=== PATIENT | female | born 1970 | race Two or more races ===

== ENCOUNTER 2021-06-21 14:39 | Emergency (ER) | payer MEDICAID ==
[~2021-06-21] VITALS: Ht 157.5 cm; Wt 90.7 kg
[2021-06-21 15:34] LABS: Basophils # (auto) 0.1 10 ^3/uL (0-0.2); Basophils % (auto) 0.7 % (0.0-2.0); Eosinophils # (auto) 0.5 10 ^3/uL (0-0.8); Eosinophils % (auto) 3.2 % (0.0-7.0); Hematocrit 42.6 % (36.0-46.0); Hemoglobin 14.2 g/dL (12.2-16.2); Lymphocytes % (auto) 28.7 % (10.0-50.0); Mean Corpuscular Hemoglobin 30.7 pg (28.0-32.0); Mean Corpuscular Hgb Conc. 33.4 g/dL (32.0-36.0); Mean Corpuscular Volume 91.7 fL (80.0-100.0); Monocytes % (auto) 7.1 % (0.0-12.0); Neutrophils # (auto) 8.4 10 ^3/uL (1.6-8.6); Neutrophils % (auto) 60.3 % (37.0-80.0); Nucleated Red Blood Cells % 0.1 %; Red Blood Cells 4.65 10^6/uL (4.0-5.20); Red Cell Distribution Width 12.8 % (11.8-14.3)
[2021-06-21 15:53] LABS: Potassium 3.9 mmol/L (3.5-5.1)
[2021-06-21 15:54] LABS: Albumin 3.4 g/dL (3.4-5.0); BUN/Creatinine Ratio 11.5; Calcium 8.8 mg/dL (8.5-10.1)
[2021-06-21 15:58] LABS: Bilirubin, Total 0.3 mg/dL (0.2-1.0); Total Protein 8.3 g/dL (6.4-8.2)
[2021-06-21 20:27] VITALS: BP 118/77
== END 2021-06-21 20:27 | disposition home or self-care (01) ==
LOC: ER 14:39
DX: R00.2 Palpitations (principal); E11.9 Type 2 diabetes mellitus without complications; E78.5 Hyperlipidemia, unspecified
CPT/HCPCS: 36415; 80053; 84484; 85025; 93005

== ENCOUNTER 2024-02-16 01:44 | Emergency (ER) | payer MEDICAID ==
[~2024-02-16] VITALS: Ht 162.6 cm; Wt 97.3 kg
[2024-02-16 02:10] VITALS: BP 145/73; PULSE 94; RESP 16; TEMP 98.5
[2024-02-16] MEDS: DexAMETHasone SOD PHOS 10MG/1ML VIAL INJ IM ONE (04:02)
[2024-02-16] MEDS: KETOROLAC TROMETH 30 MG/ML 1ML VIAL IM ONE (04:03)
[2024-02-16 04:27] LABS: Rapid Strep A Screen-Throat Negative
[2024-02-16 04:35] VITALS: O2SAT 96
[2024-02-16] MEDS ORDERED: IBUP-1455 PO (04:42)
== END 2024-02-16 05:20 | disposition home or self-care (01) ==
LOC: ER 01:44
DX: J02.8 Acute pharyngitis due to other specified organisms (principal); E11.9 Type 2 diabetes mellitus without complications; E78.5 Hyperlipidemia, unspecified; Z98.890 Other specified postprocedural states
CPT/HCPCS: 87070; 87880; 96372; 99284; J1100; J1885